=== PATIENT | male | born 1975 | race Caucasian/White ===

== ENCOUNTER → 2019-04-15 12:55 | Outpatient (CLI) | payer BC, MEDICAID, SELFPAY ==
[2019-04-09 13:24] VITALS: BMI 31.6
== END ==
PROVIDERS: Family Provider Nurse Practitioner Family; PCP Nurse Practitioner Family; Referring Provider Internal Medicine Critical Care Medicine; Visit Provider Internal Medicine Critical Care Medicine
DX: G47.33 Obstructive sleep apnea (adult) (pediatric) (principal)
CPT/HCPCS: 98960; G0463

== ENCOUNTER → 2019-05-05 14:23 | Outpatient (CLI) | payer BC, MEDICAID, SELFPAY ==
[2019-04-09 13:24] VITALS: BMI 31.6
== END ==
PROVIDERS: Family Provider Nurse Practitioner Family; PCP Nurse Practitioner Family; Referring Provider Internal Medicine Critical Care Medicine; Visit Provider Internal Medicine Critical Care Medicine
DX: Z00.00 Encounter for general adult medical examination without abnormal findings (principal)

== ENCOUNTER → 2019-07-07 13:55 | Outpatient (CLI) | payer BC, MEDICAID, SELFPAY ==
[2019-05-20 10:08] VITALS: BMI 31.2
== END ==
PROVIDERS: Family Provider Nurse Practitioner Family; PCP Nurse Practitioner Family; Referring Provider Nurse Practitioner Acute Care; Visit Provider Nurse Practitioner Acute Care
DX: G47.33 Obstructive sleep apnea (adult) (pediatric) (principal)